=== PATIENT | male | born 1990 | race Caucasian/White ===

== ENCOUNTER 2017-12-31 09:04 | Emergency (ER) | payer OTHER ==
[2017-12-31] MEDS ORDERED: ceFAZolin 1,000 MG VIAL IM ONE (09:45)
[2017-12-31] MEDS ORDERED: Acetaminophen/HYDROcodone 325-7.5 MG Tab PO ONE (09:46)
--- NOTE | 2017-12-31 09:51 | EDM.PDOC ---
ED HPI GENERAL MEDICAL PROBLEM - General Chief Complaint: Upper Extremity Injury/Pain Stated Complaint: RIGHT HAND CUT Time Seen by Provider: 12/31/17 09:40 - History of Present Illness INITIAL COMMENTS - FREE TEXT/NARRATIVE: HISTORY AND PHYSICAL: History of present illness: Patient is a healthy 27-year-old male who presents after closing the tailgate of his truck on his right thumb just prior to arrival. The patient states he was in his usual state of good health prior to these events and is up-to-date on his tetanus shot. The patient is right-hand dominant. He says he wasn't sure if the area needed any care but it is painful and he has lost the fingernail. He has no other injuries to the remainder of the fingers or the hand but the pain from the thumb is shooting up to his hand. Her sensory is intact throughout the fingers and the hand. Review of systems: As per history of present illness and below otherwise all systems reviewed and negative. Past medical history: As per history of present illness and as reviewed below otherwise noncontributory. Surgical history: As per history of present illness and as reviewed below otherwise noncontributory. Social history: No reported history of drug or alcohol abuse. Family history: As per history of present illness and as reviewed below otherwise noncontributory. Physical exam: General: Well-developed well-nourished man who is nontoxic and vital signs are noted by me HEENT: Atraumatic, normocephalic, negative for conjunctival pallor or scleral icterus, mucous membranes moist, throat clear, neck supple, nontender, trachea midline. Lungs: Clear to auscultation, breath sounds equal bilaterally, chest nontender. Heart: S1S2, regular and rhythm no overt murmurs Abdomen: Soft, nondistended, nontender. NABS Pelvis: deferred Genitourinary: Deferred. Rectal: Deferred. Extremities: Atraumatic with full range of motion without any deficits or defects with the exception of the right thumb. At the right thumb there is some soft tissue swelling of the distal tuft and tenderness with palpation but the patient is able to flex oppose abduct and adduct. The nail is missing from the nailbed and the entire soft tissue in the surround is contused and bloody but is not actively bleeding and there is no area of lacerations. The tissue is macerated and the bone can be slightly palpated with deep palpation through the soft tissue. No visible bone is appreciated. The legs are, negative for cords or calf pain. Neurovascular unremarkable. Neuro: Awake, alert, oriented. Cranial nerves II through XII unremarkable. Cerebellum unremarkable. Motor and sensory unremarkable throughout. Exam nonfocal. Diagnostics: X-ray right thumb Therapeutics: Domonique Cervantes Procedure note: A digital block was applied using 1% lidocaine without epinephrine in an effort to provide pain relief for this patient for x-ray and wound care. A total volume of 3 mL was administered and the patient tolerated the procedure well. There were no complications. Impression: Right thumb crush injury with nail loss, open tuft fracture Definitive disposition and diagnosis as appropriate pending reevaluation and review of above. left thumb Pain Score (Numeric/FACES): 10 - Related Data Allergies Allergy/AdvReac Type Severity Reaction Status Date / Time No Known Allergies Allergy Verified 12/31/17 09:19 Home Meds: Home Meds Dextroamphetamine/Amphetamine [Adderall 20 mg Tablet] 20 mg PO BID 12/31/17 [ History] Past Medical History - Past Health History Medical/Surgical History: Denies Medical/Surgical History Hematologic History: Reports: None - Infectious Disease History Infectious Disease History: Reports: Chicken Pox Social & Family History - Family History Family Medical History: Noncontributory - Tobacco Use Smoking Status *Q: Current Every Day Smoker Years of Tobacco use: 3 Packs/Tins Daily: 1 - Recreational Drug Use Recreational Drug Use: No Review of Systems - Review of Systems Review Of Systems: ROS reveals no pertinent complaints other than HPI. ED EXAM, GENERAL - Physical Exam Exam: See Below (See dictation) Course - Vital Signs Last Recorded V/S: Last Vital Signs Temp 37.0 C 12/31/17 09:19 Pulse 71 12/31/17 09:19 Resp 18 12/31/17 09:19 BP 127/82 12/31/17 09:19 Pulse Ox 100 12/31/17 09:19 - Orders/Labs/Meds Orders: Active Orders 24 hr Category Date Time Status Fingers Thumb Rt F5 [CR] Stat Exams 12/31/17 09:44 Taken Meds: Medications Discontinued Medications Generic Name Dose Route Start Last Admin Trade Name Freq PRN Reason Stop Dose Admin Hydrocodone Bitart/Acetaminophen 1 tab 12/31/17 09:46 12/31/17 10:17 [place] 325-7.5 Mg PO 12/31/17 09:47 1 tab ONETIME ONE Administration Cefazolin Sodium 1,000 mg 12/31/17 09:45 Ancef IM 12/31/17 09:46 ONETIME ONE Cefazolin Sodium 1 gm 12/31/17 10:15 Ancef IM 12/31/17 10:16 ONETIME ONE Sterile Water Confirm 12/31/17 10:26 Sterile Water For Injection Administered 12/31/17 10:27 Dose 20 mls @ as directed .ROUTE .STK-MED ONE Lidocaine HCl 10 ml 12/31/17 09:34 12/31/17 09:40 Xylocaine-Mpf 1% INJECT 12/31/17 09:35 10 ml ONETIME ONE Administration Departure - Departure Time of Disposition: 10:32 Disposition: Home, Self-Care 01 Condition: Good Clinical Impression: Open fracture of tuft of distal phalanx of finger Crushing injury of thumb, right Qualifiers: Encounter type: initial encounter Qualified Code(s): S67.01XA - Crushing injury of right thumb, initial encounter - Discharge Information Instructions: Crush Injury of the Hand, [id number] Referrals: PCP,None [Primary Care Provider] - Forms: ED Department Discharge Additional Instructions: The following information is given to patients seen in the emergency department who are being discharged to home. This information is to outline your options for follow-up care. We provide all patients seen in our emergency department with a follow-up referral. The need for follow-up, as well as the timing and circumstances, are variable depending upon the specifics of your emergency department visit. If you don't have a primary care physician on staff, we will provide you with a referral. We always advise you to contact your personal physician following an emergency department visit to inform them of the circumstance of the visit and for follow-up with them and/or the need for any referrals to a consulting specialist. The emergency department will also refer you to a specialist when appropriate. This referral assures that you have the opportunity for followup care with a specialist. All of these measure are taken in an effort to provide you with optimal care, which includes your followup. Under all circumstances we always encourage you to contact your private physician who remains a resource for coordinating your care. When calling for followup care, please make the office aware that this follow-up is from your recent emergency room visit. If for any reason you are refused follow-up, please contact the [facility] emergency department at and ask to speak to the emergency department charge nurse. [facility] Specialty clinic-Plastic Surgery and Hand Surgery Professional [address] [id number] Please keep the dressing that was placed here in the ED on for the next 24 hours then remove and cleanse with mild soap and water pat dry and use gauze and nonadhesive dressing on the wound. Please contact the clinic for follow-up with our hand specialist using resources given to above and take antibiotics as directed. Use [id number] Tylenol or ibuprofen for pain and use the stronger pain medication when you need to take it only when you're at home. Return to ER as needed and as discussed - My Orders Last 24 Hours: My Active Orders 12/31/17 09:44 Fingers Thumb Rt F5 [CR] Stat - Assessment/Plan Last 24 Hours: My Active Orders 12/31/17 09:44 Fingers Thumb Rt F5 [CR] Stat
[2017-12-31] MEDS ORDERED: ceFAZolin 1 GM Vial IM ONE ×2 (10:15)
[2017-12-31] MEDS ORDERED: Water For Injection, Sterile 20 ML ONE (10:26)
--- NOTE | 2018-01-01 14:35 | CR ---
EXAM DATE: 12/31/17 PATIENT'S AGE: 27 Patient: SEAN SETHI Facility: [place], [place] Site . Site : 1990 Study: XRay Extremity Right thumb [id number]/26/2018 10:17:34 AM Ordering Physician: Doctor Davenport Final Report: Indication: Injury and pain Technique: Right thumb 3 views Comparison: None Findings/Impression: Bones: Small fracture is present in the distal tip of the distal phalanx within adjacent soft tissue injury. No other osseous abnormality. Joint spaces: Unremarkable. Dictated by Elfego Barbosa MD @ Dec 31 2017 10:26AM (Electronic Signature) Report Signed by Proxy. IVETTE
== END 2017-12-31 10:43 | disposition home or self-care (01) ==
LOC: MW.ED 09:04
DX: S62.521B Displaced fracture of distal phalanx of right thumb, initial encounter for open fracture (principal); S67.01XA Crushing injury of right thumb, initial encounter; F17.210 Nicotine dependence, cigarettes, uncomplicated; W23.0XXA Caught, crushed, jammed, or pinched between moving objects, initial encounter
CPT/HCPCS: 64450; 73140; 96372; 99283; A9270; J0690

== ENCOUNTER 2018-07-29 08:58 | Emergency (ER) | payer OTHER ==
--- NOTE | 2018-07-29 09:00 | EDM.PDOC ---
ED HPI GENERAL MEDICAL PROBLEM - General Stated Complaint: SORE THROAT Time Seen by Provider: 07/29/18 09:00 Source of Information: Reports: Patient - History of Present Illness INITIAL COMMENTS - FREE TEXT/NARRATIVE: HISTORY AND PHYSICAL: History of present illness: [Patient presents with sore throat intermittent cough and sore throat is been increasing in severity over the last week some difficulty with solid food no difficulty with liquid no muffled voice drooling or trismus ] Review of systems: As per history of present illness and below otherwise all systems reviewed and negative. Past medical history: As per history of present illness and as reviewed below otherwise noncontributory. Surgical history: As per history of present illness and as reviewed below otherwise noncontributory. Social history: No reported history of drug or alcohol abuse. Family history: As per history of present illness and as reviewed below otherwise noncontributory. Physical exam: HEENT: Atraumatic, normocephalic, pupils reactive, negative for conjunctival pallor or scleral icterus, mucous membranes moist, throat clear, neck supple, nontender, trachea midline. D erythema no exudates Lungs: Clear to auscultation, breath sounds equal bilaterally, chest nontender. Heart: S1S2, regular, negative for clicks, rubs, or JVD. Abdomen: Soft, nondistended, nontender. Negative for masses or hepatosplenomegaly. Negative for costovertebral tenderness. Pelvis: Stable nontender. Genitourinary: Deferred. Rectal: Deferred. Extremities: Atraumatic, negative for cords or calf pain. Neurovascular unremarkable. Neuro: Awake, alert, oriented. Cranial nerves II through XII unremarkable. Cerebellum unremarkable. Motor and sensory unremarkable throughout. Exam nonfocal. Diagnostics: [Rapid strep] Therapeutics: Z-Girish HFA Phenergan with codeine ] Impression: [ pharyngitis ] Definitive disposition and diagnosis as appropriate pending reevaluation and review of above. throat Pain Score (Numeric/FACES): 6 - Related Data Allergies Allergy/AdvReac Type Severity Reaction Status Date / Time No Known Allergies Allergy Verified 12/31/17 09:19 Home Meds: Home Meds Dextroamphetamine/Amphetamine [Adderall 20 mg Tablet] 20 mg PO BID 12/31/17 [ History] Past Medical History - Past Health History Medical/Surgical History: Denies Medical/Surgical History Hematologic History: Reports: None - Infectious Disease History Infectious Disease History: Reports: Chicken Pox Social & Family History - Family History Family Medical History: Noncontributory ED ROS GENERAL - Review of Systems Review Of Systems: See Below ED EXAM, GENERAL - Physical Exam Exam: See Below Course - Vital Signs Last Recorded V/S: Last Vital Signs Temp 97.8 F 07/29/18 09:07 Pulse 101 H 07/29/18 09:07 Resp 20 07/29/18 09:07 BP 151/90 H 07/29/18 09:07 Pulse Ox 97 07/29/18 09:07 - Orders/Labs/Meds Orders: Active Orders 24 hr Category Date Time Status CULTURE STREP A CONFIRMATION [] Stat Lab 07/29/18 09:12 Results STREP SCRN A RAPID W CULT CONF [] Stat Lab 07/29/18 09:12 Results Departure - Departure Time of Disposition: 09:32 Disposition: Home, Self-Care 01 Condition: Good Clinical Impression: Pharyngitis - Discharge Information Referrals: PCP,Unknown [Primary Care Provider] - Additional Instructions: The following information is given to patients seen in the emergency department who are being discharged to home. This information is to outline your options for follow-up care. We provide all patients seen in our emergency department with a follow-up referral. The need for follow-up, as well as the timing and circumstances, are variable depending upon the specifics of your emergency department visit. If you don't have a primary care physician on staff, we will provide you with a referral. We always advise you to contact your personal physician following an emergency department visit to inform them of the circumstance of the visit and for follow-up with them and/or the need for any referrals to a consulting specialist. The emergency department will also refer you to a specialist when appropriate. This referral assures that you have the opportunity for follow-up care with a specialist. All of these measure are taken in an effort to provide you with optimal care, which includes your follow-up. Under all circumstances we always encourage you to contact your private physician who remains a resource for coordinating your care. When calling for follow-up care, please make the office aware that this follow-up is from your recent emergency room visit. If for any reason you are refused follow-up, please contact the [facility] emergency department at and asked to speak to the emergency department charge nurse. - My Orders Last 24 Hours: My Active Orders 07/29/18 09:12 CULTURE STREP A CONFIRMATION [RM] Stat STREP SCRN A RAPID W CULT CONF [RM] Stat - Assessment/Plan Last 24 Hours: My Active Orders 07/29/18 09:12 CULTURE STREP A CONFIRMATION [RM] Stat STREP SCRN A RAPID W CULT CONF [RM] Stat
== END 2018-07-29 09:45 | disposition home or self-care (01) ==
LOC: MW.ED 08:58
DX: J02.9 Acute pharyngitis, unspecified (principal); Z79.899 Other long term (current) drug therapy
CPT/HCPCS: 87081; 87880-QW; 99283

== ENCOUNTER 2019-06-30 10:03 | Emergency (ER) | payer OTHER ==
[2019-06-30] MEDS ORDERED: Ketorolac 30 MG/ML SDV IM ONE (10:41)
--- NOTE | 2019-06-30 11:25 | EDM.PDOC ---
ED HPI GENERAL MEDICAL PROBLEM - General Chief Complaint: Back Pain or Injury Stated Complaint: PAIN FROM PREV. BACK INJURY Time Seen by Provider: 06/30/19 10:21 Source of Information: Reports: Patient History Limitations: Reports: No Limitations - History of Present Illness INITIAL COMMENTS - FREE TEXT/NARRATIVE: 29-year-old gentleman, with a history of thoracic fractures in March of last year, here for worsening of his chronic pain. He's been taking Tylenol with little relief. Denies any trauma denies fever or denies shortness of breath denied any other associated symptoms. He's been more active at work lately, which he attributes his pain to. pain has been going on for weeks. tylenol not working. Located around the left hemithorax. No chest pain no shortness of breath no cough Back Pain Pain Score (Numeric/FACES): 7 - Related Data Allergies Allergy/AdvReac Type Severity Reaction Status Date / Time No Known Allergies Allergy Verified 06/30/19 10:31 Home Meds: Home Meds Naproxen 500 mg PO BID PRN #30 tablet. 06/30/19 [Rx] Past Medical History - Past Health History Medical/Surgical History: Denies Medical/Surgical History Musculoskeletal History: Reports: Other (See Below) Other Musculoskeletal History: Back fx. Multiple rib fx. Sternum fx. Hematologic History: Reports: None Oncologic (Cancer) History: Reports: Other (See Below) Other Oncologic History: testicular - Infectious Disease History Infectious Disease History: Reports: None - Past Surgical History Other Male Surgeries/Procedures: testicular surgery Social & Family History - Family History Family Medical History: Noncontributory - Tobacco Use Smoking Status *Q: Never Smoker - Caffeine Use Caffeine Use: Reports: Coffee ED ROS GENERAL - Review of Systems Review Of Systems: Comprehensive ROS is negative, except as noted in HPI. Constitutional: Reports: No Symptoms HEENT: Reports: No Symptoms Respiratory: Reports: No Symptoms Cardiovascular: Reports: No Symptoms Endocrine: Reports: No Symptoms GI/Abdominal: Reports: No Symptoms : Reports: No Symptoms Musculoskeletal: Reports: Other Skin: Reports: No Symptoms Neurological: Reports: No Symptoms Psychiatric: Reports: No Symptoms ED EXAM, GENERAL - Physical Exam Exam: See Below Exam Limited By: No Limitations General Appearance: Alert, WD/WN, No Apparent Distress Nose: Normal Inspection Head: Atraumatic, Normocephalic Neck: Normal Inspection, Supple, Non-Tender Respiratory/Chest: No Respiratory Distress, Lungs Clear, Normal Breath Sounds, No Accessory Muscle Use, Chest Non-Tender Cardiovascular: Normal Peripheral Pulses, Regular Rate, Rhythm GI/Abdominal: Soft, Non-Tender (Male) Exam: Deferred Rectal (Males) Exam: Deferred Extremities: Normal Inspection, Normal Range of Motion, Non-Tender Neurological: Alert, Normal Gait, No Motor/Sensory Deficits, Other (Gait normal strength and sensation intact) Course - Vital Signs Last Recorded V/S: Last Vital Signs Temp 98.6 F 06/30/19 10:31 Pulse 108 H 06/30/19 10:31 Resp 16 06/30/19 10:31 BP 112/79 06/30/19 10:31 Pulse Ox 97 06/30/19 10:31 - Orders/Labs/Meds Meds: Medications Discontinued Medications Generic Name Dose Route Start Last Admin Trade Name Freq PRN Reason Stop Dose Admin Ketorolac Tromethamine 30 mg 06/30/19 10:41 06/30/19 10:54 Toradol IM 06/30/19 10:42 30 mg ONETIME ONE Administration - Re-Assessments/Exams Free Text/Narrative Re-Assessment/Exam: 06/30/19 11:24 Pain improving with shot of Toradol. Will give him Naprosyn for him to take as home and as needed. will Give him a pain management referral. Return precautions discussed. No new trauma no signs of infection. No imaging needed for his chronic pain Departure - Departure Time of Disposition: 11:25 Disposition: Home, Self-Care 01 Clinical Impression: Back pain - Discharge Information Prescriptions: Naproxen 500 mg PO BID PRN #30 tablet.dr HEWITT Reason: Pain (Moderate 4-6) Referrals: PCP,None [Primary Care Provider] - Forms: ED Department Discharge Sepsis Event Note - Evaluation Sepsis Screening Result: No Definite Risk - Focused Exam Vital Signs: Vital Signs Temp Pulse Resp BP Pulse Ox 06/30/19 10:31 98.6 F 108 H 16 112/79 97 Date Exam was Performed: 06/30/19 Time Exam was Performed: 11:27
== END 2019-06-30 11:50 | disposition home or self-care (01) ==
LOC: MW.ED 10:03
DX: M54.6 Pain in thoracic spine (principal)
CPT/HCPCS: 96372; 99283; J1885